=== PATIENT | female | born 1995 | race Caucasian/White ===

== ENCOUNTER 2016-11-12 17:41 | Emergency (ER) | payer OTHER, MEDICAID ==
[2016-11-12] MEDS ORDERED: AZITHROMYCIN 250 MG TABLET PO STA (18:13)
[2016-11-12] MEDS ORDERED: metroNIDAZOLE 250 MG TABLET PO STA (18:13)
[2016-11-12] MEDS ORDERED: cefTRIAXone 250 MG VIAL IM STA (18:13)
[2016-11-12] MEDS ORDERED: cefTRIAXone 250 MG VIAL ONE (18:20)
[2016-11-12] MEDS ORDERED: LIDOCAINE 1% 2 ML VIAL ONE (18:20)
[2016-11-12] MEDS ORDERED: AZITHROMYCIN 250 MG TABLET PO ONE (18:20)
[2016-11-12] MEDS ORDERED: metroNIDAZOLE 250 MG TABLET PO ONE (18:20)
== END 2016-11-12 18:53 | disposition short-term general hospital (02) ==
DX: T76.21XA Adult sexual abuse, suspected, initial encounter (principal); R10.2 Pelvic and perineal pain; Z97.5 Presence of (intrauterine) contraceptive device
CPT/HCPCS: 36415; 84703; 86706; 86803; 87389; 99283; A9270

== ENCOUNTER 2017-02-07 14:26 | Outpatient (CLI) | payer MEDICAID | END 2017-02-07 14:27 | disposition critical access hospital (66) | LOC: EMS 14:26 | PROVIDERS: ATTEND Surgery | DX: R06.00 Dyspnea, unspecified (principal) | CPT/HCPCS: A0425; A0429 ==

== ENCOUNTER 2017-02-07 15:00 | Emergency (ER) | payer MEDICAID ==
[2017-02-07] MEDS ORDERED: CETIRIZINE 10 MG TABLET PO STA (16:40)
--- NOTE | 2017-02-07 16:42 | ED Physician Documentation ---
History of Present Illness - Stated complaint Stated Complaint: POISON HOWARD - Chief complaint Chief Complaint: Resp - History obtained from History obtained from: Patient - History of Present Illness Timing: Today, How many hours ago (1) Pain level max: 0 Pain level now: 0 Improved by: stopping pulling howard Worsened by: exposure to pollen and dust - Additonal information Additional information: Patient is a 21-year-old female who was pulling IV off of the gordon at work today when she began to feel scratchiness and itchiness in her throat and over her body. She was removed from the area and symptoms resolved. No dyspnea. No wheezing. No history of environmental allergies in the past. Review of Systems Constitutional: denies: Fever, Chills : denies: Now EGA Skin: denies: Rash Musculoskeletal: denies: Neck pain, Back pain Neurologic: denies: Headache PD PAST MEDICAL HISTORY - Past Medical History Past Medical History: No - Past Surgical History Past Surgical History: No - Present Medications Home Medications: Ambulatory Orders Medication Instructions Recorded Confirmed Levonorgestrel [Mirena] 1 unit IU UD 11/12/16 02/07/17 Cetirizine [ZyrTEC] 10 mg PO DAILY PRN #10 tablet 02/07/17 - Allergies Allergies/Adverse Reactions: Allergies Allergy/AdvReac Type Severity Reaction Status Date / Time No Known Drug Allergies Allergy Verified 11/12/16 17:50 - Social History Does the pt smoke?: No Smoking Status: Never smoker Does the pt drink ETOH?: Yes Does the pt have substance abuse?: No - Family History Family history: reports: Non contributory - Immunizations Immunizations are current?: Yes - POLST Patient has POLST: No PD ED PE NORMAL - Vitals Vital signs reviewed: Yes - General General: Alert and oriented X 3, No acute distress - HEENT HEENT: Moist mucous membranes, Pharynx benign - Neck Neck: Supple, no meningeal sign - Cardiac Cardiac: RRR - Respiratory Respiratory: No respiratory distress, Clear bilaterally - Abdomen Abdomen: Soft, Non tender - Derm Derm: Warm and dry, No rash - Neuro Neuro: Alert and oriented X 3 - Psych Psych: Normal mood, Normal affect Results - Vitals Vitals: Vital Signs - 24 hr 02/07/17 02/07/17 15:02 17:11 Temperature 36.6 C 36.6 C Heart Rate 62 58 L Respiratory 18 16 Rate Blood Pressure 108/55 L 111/73 O2 Saturation 99 98 Oxygen O2 Source Room air PD MEDICAL DECISION MAKING - ED course Complexity details: considered differential, d/w patient ED course: Patient is a 21-year-old female who presents to the emergency department what appears to be a generalized allergic reaction to environmental allergies when pulling howard [id number] at work. She is well-appearing, nontoxic. Afebrile. No wheezing. No stridor. Will place on Zyrtec for the next few days and have her follow-up with her doctor. Patient counseled regarding signs and symptoms for which I believe and urgent re-evaluation would be necessary. Patient with good understanding of and agreement to plan and is comfortable going home at this time This document was made in part using voice recognition software. While efforts are made to proofread this document, sound alike and grammatical errors may occur. Departure - Departure Disposition: 01 Home, Self Care Clinical Impression: Allergic reaction Qualifiers: Encounter type: initial encounter Qualified Code(s): T78.40XA - Allergy, unspecified, initial encounter Condition: Good Instructions: ED Allergic Reaction General Other Follow-Up: your,doctor in 1 week [Other] Prescriptions: Cetirizine [ZyrTEC] 10 mg PO DAILY PRN #10 tablet PRN Reason: Allergy Symptoms Comments: Return if you worsen. Use Zyrtec for the next few days to help suppress the allergic reaction symptoms. Discharge Date/Time: 02/07/17 17:10
[2017-02-07] MEDS ORDERED: CETIRIZINE 10 MG TABLET ONE (17:04)
[2017-02-07 17:11] VITALS: BP 111/73
== END 2017-02-07 17:10 | disposition home or self-care (01) ==
LOC: EDUNIT# → ED 15:00
DX: T78.40XA Allergy, unspecified, initial encounter (principal); X58.XXXA Exposure to other specified factors, initial encounter
CPT/HCPCS: 99283; A9270

== ENCOUNTER 2018-12-14 00:15 | Outpatient (CLI) | payer OTHER | END 2018-12-14 00:16 | disposition critical access hospital (66) | LOC: EMS 00:15 | PROVIDERS: ATTEND Surgery | DX: T39.312A Poisoning by propionic acid derivatives, intentional self-harm, initial encounter (principal); T48.4X2A Poisoning by expectorants, intentional self-harm, initial encounter; R41.82 Altered mental status, unspecified | CPT/HCPCS: A0425; A0429 ==

== ENCOUNTER 2018-12-14 00:57 | Emergency (ER) | payer MEDICAID, OTHER ==
[2018-12-14] MEDS ORDERED: SODIUM CHLORIDE 0.9% 1,000 ML IV ONE (01:17)
[2018-12-14] MEDS ORDERED: FAMOTIDINE 20 MG/2 ML VIAL IVP STA (01:18)
--- NOTE | 2018-12-14 01:19 | ED Physician Documentation ---
PD HPI OVERDOSE - Stated complaint Stated Complaint: OD/SI - Chief complaint Chief Complaint: MHE - History obtained from History obtained from: Patient, EMS - History of Present Illness Timing - onset: Today Subtance(s) ingested: Multiple (Ibuprofen and half a bottle of cough and cold medicine. These were what were available in the medicine cabinet. She also made laceration attempts on the left wrist. She did have suicidal ideation with it. She did rate and several notes clearly expressing her intention to kill herself. Her parents had come home and found her with the empty bottles in the wound on her wrist and called EMS. Here she states she is still feeling suicidal. She is also feeling somewhat lightheaded.) Associated symptoms: Altered mental status (somewhat sleepy and lightheaded) Contributing factors: Depresssed, Suicidal. No: Substance abuse Similar symptoms before: Diagnosis (depression and suicidality with overdose 5 years ago. Sees counselor regularly. No current meds.) Recently seen: Other (has counselor in [place], whom she sees regularly for the past 9 years.) Review of Systems Constitutional: denies: Fever Nose: denies: Rhinorrhea / runny nose, Congestion Throat: denies: Sore throat Respiratory: denies: Cough GI: denies: Abdominal Pain, Nausea, Vomiting, Diarrhea : denies: Dysuria, Discharge Neurologic: reports: Generalized weakness. denies: Focal weakness, Numbness, Near syncope Psychiatric: reports: Depressed, Suicidal. denies: Anxiety Endocrine: denies: Weight loss, Weight gain PD PAST MEDICAL HISTORY - Past Medical History Cardiovascular: None Respiratory: None HEENT: Other (allergies) Psych: Depression - Past Surgical History Past Surgical History: No - Present Medications Home Medications: Ambulatory Orders Medication Instructions Recorded Confirmed Levonorgestrel [Mirena] 1 unit IU UD 11/12/16 02/07/17 Cetirizine [ZyrTEC] 10 mg PO DAILY PRN #10 tablet 02/07/17 - Allergies Allergies/Adverse Reactions: Allergies Allergy/AdvReac Type Severity Reaction Status Date / Time No Known Drug Allergies Allergy Verified 11/12/16 17:50 - Social History Does the pt smoke?: No Smoking Status: Never smoker Does the pt drink ETOH?: Yes Does the pt have substance abuse?: No - Immunizations Immunizations are current?: Yes - POLST Patient has POLST: No PD ED PE NORMAL - Vitals Vital signs reviewed: Yes - General General: Alert and oriented X 3, Well developed/nourished - HEENT HEENT: PERRL, EOMI (no nystagmus), Pharynx benign - Neck Neck: Supple, no meningeal sign, No adenopathy - Cardiac Cardiac: RRR, No murmur - Respiratory Respiratory: Clear bilaterally - Abdomen Abdomen: Soft, Non tender - Derm Derm: Normal color, Warm and dry - Extremities Extremities: Other (The left wrist anteriorly has multiple parallel superficial lacerations without any full-thickness. There is no foreign bodies. There is no active bleeding. She has normal sensation color and capillary refill in the fingers. Normal sensation in the fingers and flexion.) - Neuro Neuro: Alert and oriented X 3, No motor deficit, Normal speech Eye Opening: Spontaneous Motor: Obeys Commands Verbal: Oriented GCS Score: 15 Results - Vitals Vitals: Vital Signs - 24 hr 12/14/18 12/14/18 12/14/18 00:57 01:02 01:33 Temperature 36.3 C L 36.7 C Heart Rate 64 66 63 Respiratory 16 Rate Blood Pressure 114/69 121/71 116/73 O2 Saturation 98 99 99 12/14/18 12/14/18 05:30 05:44 Temperature 36.4 C L Heart Rate 72 Respiratory 18 Rate Blood Pressure 110/71 O2 Saturation 92 Oxygen O2 Source Room air - EKG (time done) 01:19 Rate: Rate (enter#) (56) Rhythm: NSR [place]: Normal Intervals: Normal ME QRS: Normal Ischemia: Normal ST segments. No: ST elevation c/w ischemia, ST depression - Labs Labs: Laboratory Tests 12/14/18 12/14/18 12/14/18 01:40 01:40 02:30 WBC 7.8 RBC 4.12 L Hgb 12.4 Hct 34.9 L MCV 84.8 MCH 30.2 MCHC 35.6 RDW 12.9 Plt Count 275 MPV 6.4 L Neut # (Auto) 5.6 Lymph # (Auto) 1.3 L [place] # (Auto) 0.7 Eos # (Auto) 0.1 Baso # (Auto) 0.1 Absolute Nucleated RBC 0.00 Nucleated RBC % 0.0 Sodium Potassium Chloride Carbon Dioxide Anion Gap BUN Creatinine Estimated GFR (MDRD) Glucose Calcium Magnesium Total Bilirubin AST ALT Alkaline Phosphatase Total Protein Albumin Globulin Albumin/Globulin Ratio Lipase TSH Urine Color YELLOW Urine Clarity CLEAR Urine pH 6.5 Ur Specific [place] 1.020 Urine Protein TRACE Urine Glucose (UA) NEGATIVE Urine Ketones NEGATIVE Urine Occult Blood LARGE H Urine Nitrite NEGATIVE Urine Bilirubin NEGATIVE Urine Urobilinogen 0.2 (NORMAL) Ur Leukocyte Esterase TRACE H Urine RBC 11-25 H Urine WBC 4-5 Ur Squamous Epith Cells MANY Squamous H Urine Bacteria Few Ur Microscopic Review INDICATED Urine Culture Comments NOT INDICATED Urine HCG, Qual NEGATIVE Salicylates Urine Opiates Screen NEGATIVE Ur Oxycodone Screen NEGATIVE Urine Methadone Screen NEGATIVE Ur Propoxyphene Screen NEGATIVE Acetaminophen Ur Barbiturates Screen NEGATIVE Ur Tricyclics Screen NEGATIVE Ur Phencyclidine Scrn NEGATIVE Ur Amphetamine Screen NEGATIVE U Methamphetamines Scrn NEGATIVE U Benzodiazepines Scrn NEGATIVE Urine Cocaine Screen NEGATIVE U Cannabinoids Screen NEGATIVE Ethyl Alcohol 12/14/18 12/14/18 02:30 02:30 WBC RBC Hgb Hct MCV MCH MCHC RDW Plt Count MPV Neut # (Auto) Lymph # (Auto) [place] # (Auto) Eos # (Auto) Baso # (Auto) Absolute Nucleated RBC Nucleated RBC % Sodium 137 Potassium 3.5 Chloride 104 Carbon Dioxide 25 Anion Gap 8.0 BUN 12 Creatinine 0.8 Estimated GFR (MDRD) 87 L Glucose 99 Calcium 8.5 Magnesium 2.2 Total Bilirubin 1.1 H AST 11 ALT 11 Alkaline Phosphatase 37 L Total Protein 6.4 L Albumin 3.9 Globulin 2.5 Albumin/Globulin Ratio 1.6 Lipase 29 TSH 0.71 Urine Color Urine Clarity Urine pH Ur Specific [place] Urine Protein Urine Glucose (UA) Urine Ketones Urine Occult Blood Urine Nitrite Urine Bilirubin Urine Urobilinogen Ur Leukocyte Esterase Urine RBC Urine WBC Ur Squamous Epith Cells Urine Bacteria Ur Microscopic Review Urine Culture Comments Urine HCG, Qual Salicylates < 6.0 Urine Opiates Screen Ur Oxycodone Screen Urine Methadone Screen Ur Propoxyphene Screen Acetaminophen < 10 L Ur Barbiturates Screen Ur Tricyclics Screen Ur Phencyclidine Scrn Ur Amphetamine Screen U Methamphetamines Scrn U Benzodiazepines Scrn Urine Cocaine Screen U Cannabinoids Screen Ethyl Alcohol < 5.0 PD MEDICAL DECISION MAKING - ED course Complexity details: reviewed results, re-evaluated patient (After 2 to 3 hours here in the ER, the patient remained stable with vital signs. She rested well. When asked if she had intention to or desire to still hurt herself, she said she was not sure and was not able to give a verbal pa for safety. In the lieu of the suicidal notes and the overdose and cutting of her wrist, I feel she is at risk for self-harm and she is not clear in her intention for needing help at this moment. I therefore feel the [facility] evaluation is warranted.), considered differential, d/w patient Departure - Departure Disposition: 65 Psych Hosp/Unit DC/Xfer Clinical Impression: Intentional overdose of drug in tablet form Laceration of wrist Qualifiers: Encounter type: initial encounter Laterality: left Qualified Code(s): S61.512A - Laceration without foreign body of left wrist, initial encounter Suicidal behavior Qualifiers: Attempted self-injury: with attempted self-injury Qualified Code(s): T14.91XA - Suicide attempt, initial encounter Condition: Stable Record reviewed to determine appropriate education?: Yes
[2018-12-14 01:47] LABS: MUDS CUTOFF CONCENTRATIONS CUTOFF CONC BELOW:
[2018-12-14 01:50] LABS: BILIRUBIN,URINE NEGATIVE (NEGATIVE); GLUCOSE, URINE (UA) NEGATIVE (NEGATIVE); KETONES,URINE (UA) NEGATIVE (NEGATIVE); LEUKOCYTE ESTERASE, URINE TRACE (NEGATIVE); NITRITE,URINE NEGATIVE (NEGATIVE); OCCULT BLOOD,URINE LARGE (NEGATIVE); PH,URINE 6.5 PH (5.0-7.5); PROTEIN,URINE TRACE mg/dL (NEGATIVE); UROBILINOGEN,URINE 0.2 (NORMAL) E.U./dL (NORMAL)
[2018-12-14 01:52] LABS: CLARITY,URINE CLEAR (CLEAR); HCG UR QUAL NEGATIVE
[2018-12-14 01:57] LABS: BACTERIA,URINE Few /HPF (None Seen); SQUAMOUS EPITHELIAL CELL,UR MANY Squamous (<= Few)
[2018-12-14 02:00] LABS: AMPHETAMINE SCREEN,URINE NEGATIVE (NEGATIVE); BENZODIAZEPINES SCREEN, URINE NEGATIVE (NEGATIVE); COCAINE SCREEN URINE NEGATIVE (NEGATIVE); METHADONE SCREEN, URINE NEGATIVE (NEGATIVE); METHAMPHETAMINES SCREEN, URINE NEGATIVE (NEGATIVE); OPIATE SCREEN, URINE NEGATIVE (NEGATIVE); OXYCODONE SCREEN, URINE NEGATIVE (NEGATIVE); PROPOXYPHENE SCREEN, URINE NEGATIVE (NEGATIVE); TRICYCLIC ANTIDEPRESSANT,URINE NEGATIVE (NEGATIVE)
[2018-12-14 02:42] LABS: BASOPHILS # (AUTO) 0.1 10^3/uL (0.0-0.1); EOSINOPHILS # (AUTO) 0.1 10^3/uL (0.0-0.7); EOSINOPHILS % (AUTO) 1.2 %; HGB - HEMOGLOBIN 12.4 g/dL (12.0-16.0); LYMPHOCYTES # (AUTO) 1.3 10^3/uL (1.5-3.5); LYMPHOCYTES % (AUTO) 16.6 %; MEAN CORPUSCULAR HEMOGLOBIN 30.2 pg (27.0-31.0); MEAN CORPUSCULAR HGB CONC 35.6 g/dL (32.0-36.0); MEAN CORPUSCULAR VOLUME 84.8 fL (81.0-99.0); MEAN PLATELET VOLUME 6.4 fL (7.9-10.8); MONOCYTES # (AUTO) 0.7 10^3/uL (0.0-1.0); NEUTROPHILS # (AUTO) 5.6 10^3/uL (1.5-6.6); NEUTROPHILS % (AUTO) 72.2 %; PLT - PLATELET COUNT 275 10^3/uL (130-450); RED BLOOD COUNT 4.12 10^6/uL (4.20-5.40); RED CELL DISTRIBUTION WIDTH 12.9 % (12.0-15.0); WHITE BLOOD COUNT 7.8 x10^3/uL (4.8-10.8)
[2018-12-14 02:54] LABS: ACETAMINOPHEN < 10 ug/mL (10-30); ALBUMIN 3.9 g/dL (3.2-5.5); ALBUMIN/GLOBULIN RATIO 1.6 (1.0-2.2); ALKALINE PHOSPHATASE 37 IU/L (42-121); ALT ALANINE AMINOTRANSFERASE 11 IU/L (10-60); AST ASPARTATE AMINOTRANSFERASE 11 IU/L (10-42); BILIRUBIN,TOTAL 1.1 mg/dL (0.2-1.0); BUN - BLOOD UREA NITROGEN 12 mg/dL (6-20); CALCIUM 8.5 mg/dL (8.5-10.3); CARBON DIOXIDE - CO2 25 mmol/L (21-32); CHLORIDE 104 mmol/L (101-111); CREATININE 0.8 mg/dL (0.4-1.0); GFR - MDRD 87 (>89); GLUCOSE 99 mg/dL (70-100); LIPASE 29 U/L (22-51); MAGNESIUM 2.2 mg/dL (1.7-2.8); SALICYLATE < 6.0 mg/dL; SODIUM 137 mmol/L (135-145); TOTAL PROTEIN 6.4 g/dL (6.7-8.2)
[2018-12-14 15:04] VITALS: BP 124/96
== END 2018-12-14 15:15 ==
LOC: EDUNIT# → ED 00:57
DX: T39.312A Poisoning by propionic acid derivatives, intentional self-harm, initial encounter (principal); T48.3X2A Poisoning by antitussives, intentional self-harm, initial encounter; R41.82 Altered mental status, unspecified; R53.1 Weakness; S61.512A Laceration without foreign body of left wrist, initial encounter; X78.9XXA Intentional self-harm by unspecified sharp object, initial encounter; Y92.009 Unspecified place in unspecified non-institutional (private) residence as the place of occurrence of the external cause; F32.9 Major depressive disorder, single episode, unspecified
CPT/HCPCS: 36415; 80053; 80306; 80307; 80320; 80329; 81001; 81003; 81025; 83690; 83735; 84443; 85025; 87086; 93005; 96361; 96374; 99284; 99285